=== PATIENT | male | born 1950 | race Caucasian/White ===

== ENCOUNTER 2017-08-11 21:00 | Inpatient (IN) | payer OTHER, MEDICARE ==
[~2017-08-11] VITALS: Ht 167.6 cm; Wt 83.5 kg
[~2017-08-11 21:00] MED LIST: NALOXONE HCL 0.4 MG/ML AMP IV PUSH PRN; SODIUM CHLORIDE 0.9% FLUSH 10 ML FLUSH IV FLUSH PRN; SODIUM CHLORIDE 0.9% FLUSH 10 ML FLUSH IV FLUSH SCH; Vancomycin Consult Pharmacy 1 EA OTHER SCH
[2017-08-11 21:48] VITALS: BP 100/60; PULSE 98; RESP 24; TEMP 98.8; O2SAT 96
[2017-08-11] MEDS ORDERED: AZTREONAM INJ 2,000 MG in SODIUM CHLORIDE 0.9% INJ 100 ML IV SCH (22:00)
[2017-08-11] MEDS ORDERED: NALOXONE HCL 0.4 MG/ML AMP IV PUSH PRN (22:15)
[2017-08-11] MEDS ORDERED: BISACODYL 10 MG SUPP RECTAL PRN (22:15)
[2017-08-11] MEDS ORDERED: MAGNESIUM HYDROXIDE SUSP 30 ML CUP PO PRN (22:15)
[2017-08-11] MEDS ORDERED: SENNOSIDES 8.6 MG TAB PO PRN (22:15)
[2017-08-11] MEDS ORDERED: SODIUM CHLORIDE 0.9% FLUSH 10 ML FLUSH IV FLUSH PRN (22:15)
[2017-08-11] MEDS ORDERED: LACTULOSE SYRUP 20 GM/30 ML CUP PO PRN (22:15)
[2017-08-11] MEDS ORDERED: DIATRIZOATE MEGLUM/DIATRIZOATE SOD 9 ML CUP PO ONE (22:23)
[2017-08-11] MEDS ORDERED: ENALAPRILAT 2.5 MG/2 ML VIAL IV PUSH PRN (22:30)
--- NOTE | 2017-08-11 22:34 | HHI.HP ---
[facility]Staff Admission Diagnosis Diagnoses: Travel History International Travel<30 Days: Yes Contact w/Intl Traveler <30 Da: Yes Traveled to Known Affected Are: No History of Present Illness 66-year-old male presented to the [place] emergency department with a three-day history of nausea/vomiting/diarrhea and anorexia. Patient also endorses 3 days of fever/chills and fatigue. He states he is having shortness of breath worse when he walks or lies flat. He has no known cardiac history. Patient also endorses right lower back pain and is concerned about his kidneys. He is visiting from [place], staying with his brother. He denies any sick contacts. Endorses bloody stools 6 months. On arrival to the emergency department, patient was found to have leukocytosis of 21.9. UA was significant for a UTI, culture pending. Patient was also in acute renal failure with a creatinine of 2.60. Per the patient, he has no known kidney disease. Patient complains of diffuse abdominal pain with significant tenderness to palpation in the right lower quadrant. Review of Systems Positive fever/chills Denies blurry vision, otorrhea, rhinorrhea Denies sore throat and cough No chest pain/palpitations, positive shortness of breath Diffuse abdominal pain Nausea/vomiting/diarrhea Positive fatigue No rashes Past Family Social History Past Medical History Hypertension Hyperlipidemia BPH Past Surgical History None Reported Medications Patient takes Flomax, and antihypertensives Allergies: Coded Allergies: Penicillins (Verified Allergy, Unknown, Rash, 08/11/17) Family History Father with history of diabetes mellitus. Mom with CAD. Social History Denies alcohol, tobacco or illicit drugs Physical Exam Vital Signs Vital Signs Date Time Temp Pulse Resp B/P (MAP) Pulse Ox O2 Delivery O2 Flow Rate FiO2 08/11/17 21:48 98.8 98 24 100/60 (73) 96 Physical Exam GENERAL: Male, lying in bed SKIN: No rashes, ecchymoses or lesions. Cool and dry. HEAD: Atraumatic. Normocephalic. No temporal or scalp tenderness. EYES: Pupils equal round and reactive. Extraocular motions intact. No scleral icterus. No injection or drainage. ENT: Nose without bleeding, purulent drainage or septal hematoma. Throat without erythema, tonsillar hypertrophy or exudate. Uvula midline. Airway patent. Mucous membranes dry. NECK: Trachea midline. No JVD or lymphadenopathy. Supple, nontender, no meningeal signs. CARDIOVASCULAR: Regular rate and rhythm without murmurs, gallops, or rubs. RESPIRATORY: Clear to auscultation. Breath sounds equal bilaterally. No wheezes , rales, or rhonchi. GASTROINTESTINAL: Abdomen soft, nondistended. Tender to palpation worse in the right lower quadrant. No peritoneal signs. No hepato-splenomegaly, or palpable masses. No guarding. : Positive CVA tenderness on the right side MUSCULOSKELETAL: Extremities without clubbing, cyanosis, or edema. No joint tenderness, effusion, or edema noted. No calf tenderness. Negative Homans sign bilaterally. NEUROLOGICAL: Awake and alert. Cranial nerves II through XII intact. Motor and sensory grossly within normal limits. Five out of 5 muscle strength in all muscle groups. Normal speech. Caprini VTE Risk Assessment Caprini VTE Risk Assessment: Mod/High Risk (score >= 2) Caprini Risk Assessment Model Point Value = 1 Point Value = 2 Point Value = 3 Point Value = 5 Age 41-60 Minor surgery BMI > 25 kg/m2 Swollen legs Varicose veins or History of unexplained or recurrent spontaneous Oral contraceptives or hormone replacement Sepsis (< 1 month) Serious lung disease, including pneumonia (< 1 month) Abnormal pulmonary function Acute myocardial infarction Congestive heart failure (< 1 month) History of inflammatory bowel disease Medical patient at bed rest Age 61-74 Arthroscopic surgery Major open surgery (> 45 min) Laparoscopic surgery (> 45 min) Malignancy Confined to bed (> 72 hours) Immobilizing plaster cast Central venous access Age >= 75 History of VTE Family history of VTE Factor V Leiden Prothrombin [id number] Lupus anticoagulant Anticardiolipin antibodies Elevated serum homocysteine Heparin-induced thrombocytopenia Other congenital or acquired thrombophilia Stroke (< 1 month) Elective arthroplasty Hip, pelvis, or leg fracture Acute spinal cord injury (< 1 month) Prophylaxis Regimen Total Risk Factor Score Risk Level Prophylaxis Regimen 0-1 Low Early ambulation 2 Moderate Order ONE of the following: *Sequential Compression Device (SCD) *Heparin 5000 units SQ BID 3-4 Higher Order ONE of the following medications: *Heparin 5000 units SQ TID *Enoxaparin/Lovenox 40 mg SQ daily (WT < 150 kg, CrCl > 30 mL/min) *Enoxaparin/Lovenox 30 mg SQ daily (WT < 150 kg, CrCl > 10-29 mL/min) *Enoxaparin/Lovenox 30 mg SQ BID (WT < 150 kg, CrCl > 30 mL/min) AND/OR *Sequential Compression Device (SCD) 5 or more Highest Order ONE of the following medications: *Heparin 5000 units SQ TID (Preferred with Epidurals) *Enoxaparin/Lovenox 40 mg SQ daily (WT < 150 kg, CrCl > 30 mL/min) *Enoxaparin/Lovenox 30 mg SQ daily (WT < 150 kg, CrCl > 10-29 mL/min) *Enoxaparin/Lovenox 30 mg SQ BID (WT < 150 kg, CrCl > 30 mL/min) AND *Sequential Compression Device (SCD) Assessment and Plan Assessment and Plan 66-year-old male resident with a three-day history of nausea/vomiting/abdominal pain, fever and shortness of breath. Meet sepsis criteria. 1. Severe sepsis Acute kidney injury with creatinine of 2.60 Leukocytosis of 21.9 UA positive for UTI Positive CVA tenderness Physical exam concerning for diverticulitis versus other abdominal pathology CT abdomen/pelvis pending Cipro/Flagyl C. difficile pending Blood cultures pending Urine cultures pending Status post fluid resuscitation in the emergency department, continue IV fluids at 100 cc/hour 2. Acute kidney injury Fluid resuscitation as above Monitor renal function Secondary to sepsis versus decreased by mouth intake 3. Nausea/vomiting/diarrhea CT pending as above Antibiotics as above Zofran C. difficile pending 4. Hypertension Patient on antihypertensives unknown at this time Currently hypotensive at 100/60 Vasotec. FEN Clear liquid diet Monitor electrolytes Fluids as above Heparin Physician Certification 2 Midnight Certification Type: Admission for Inpatient Services Order for Inpatient Services The services are ordered in accordance with Medicare regulations or non- Medicare payer requirements, as applicable. In the case of services not specified as inpatient-only, they are appropriately provided as inpatient services in accordance with the 2-midnight benchmark. Estimated LOS (days): 2 2 days is the estimated time the patient will need to remain in the hospital, assuming treatment plan goals are met and no additional complications. Post-Hospital Plan: Not yet determined Carmenza Stoddard MD Aug 11, 2017 22:34
[2017-08-11] MEDS: ONDANSETRON HCL 4 MG/2 ML VIAL IVP PRN (23:07)
[2017-08-11] MEDS: ACETAMINOPHEN 325 MG TAB PO PRN (23:08)
[2017-08-11] MEDS: metroNIDAZOLE 500 MG INJ 100 ML IV SCH (23:10)
[2017-08-11] MEDS: SODIUM CHLOR 0.9% 1000 ML INJ 1,000 ML IV SCH (23:14)
[2017-08-11] MEDS: CIPROFLOXACIN 400 MG PREMIX 200 ML IV SCH (23:16)
[2017-08-11] MEDS: HEPARIN SODIUM - SQ 10,000 UNITS/ML VIAL SQ SCH (23:18)
[2017-08-12] VITALS (9 sets, daily range): BP systolic 99–112; BP diastolic 59–65; PULSE 82–102; RESP 16–22; TEMP 97.3–99.1; O2SAT 95–100
--- NOTE | 2017-08-12 01:53 | RADRPT ---
EXAM DATE/TIME: 08/12/2017 01:19 [facility] COMPARISON: ABDOMEN FLAT & UPRIGHT, August 11, 2017, 16:12. INDICATIONS : Abdominal pain with nausea, vomiting and fever. ORAL CONTRAST: Prescribed oral contrast ingested. RADIATION DOSE: 8.65 CTDIvol (mGy) MEDICAL HISTORY : Hypertension. Gastroesophageal reflux disease. SURGICAL HISTORY : None. ENCOUNTER: Initial ACUITY: 2 days PAIN SCALE: 7/10 LOCATION: All quadrants. TECHNIQUE: Volumetric scanning of the abdomen and pelvis was performed. Using automated exposure control and ad justment of the mA and/or kV according to patient size, radiation dose was kept as low as reasonably achievable to obtain optimal diagnostic quality images. DICOM format image data is available electro nically for review and comparison. FINDINGS: LOWER LUNGS: Atelectasis and small pleural effusions are seen of both visualized lung bases. LIVER: Homogeneous density without lesion. There is no dilation of the biliary tree. No calcified gallston es. SPLEEN: Normal size without lesion. PANCREAS: Within normal limits. KIDNEYS: Left kidney appears edematous/swollen relative to the right and there is perinephric edema. No hydron ephrosis or hydroureter. No perceptible stone. ADRENAL GLANDS: Within normal limits. VASCULAR: There is no aortic aneurysm. BOWEL/MESENTERY: There is moderate to severe diverticulosis of the descending and sigmoid colon. Some of the left michaelle nephric edema is seen at the level of the mid to lower descending colon and mild diverticulitis is no t excludable. Normal appendix. ABDOMINAL WALL: Within normal limits. RETROPERITONEUM: Scattered shotty retroperitoneal lymph nodes. Nothing pathologic by size criteria. BLADDER: No wall thickening or mass. REPRODUCTIVE: Within normal limits. INGUINAL: There is no lymphadenopathy or hernia. MUSCULOSKELETAL: No acute bony abnormality demonstrated. CONCLUSION: 1. Inflammatory changes of the left kidney of uncertain etiology. The differential would include pyel onephritis and a recently passed stone. 2. Diverticulosis of the left side of the colon and potential mild diverticulitis of the mid to dista l descending. 3. Atelectasis and small pleural effusions of the visualized lung bases. Stoney Vences MD on August 12, 2017 at 1:43 Board Certified Radiologist. This report was verified electronically.
[2017-08-12] MEDS: metroNIDAZOLE 500 MG INJ 100 ML IV SCH ×4 (05:17→21:29)
[2017-08-12] MEDS: HEPARIN SODIUM - SQ 10,000 UNITS/ML VIAL SQ SCH ×3 (05:17→21:30)
[2017-08-12 05:50] LABS: C. DIFF EPI 027 PRESUMPTIVE NEGATIVE (NEGATIVE)
[2017-08-12 06:29] LABS: AUTOMATED NEUTROPHIL # 13.6 TH/MM3 (1.8-7.7); BASOPHIL # 0.1 TH/MM3 (0-0.2); BASOPHIL % 0.4 % (0.0-2.0); EOSINOPHIL % 0.1 % (0.0-4.0); HEMATOCRIT 35.9 % (39.0-51.0); HEMO FLAGS DIFF FINAL; LYMPH % 4.3 % (9.0-44.0); LYMPHOCYTE # 0.7 TH/MM3 (1.0-4.8); MEAN CELL VOLUME 86.3 FL (80.0-100.0); MEAN CORPUSCULAR HEMOGLOBIN 28.8 PG (27.0-34.0); MEAN CORPUSCULAR HGB CONC 33.4 % (32.0-36.0); MONO % 10.2 % (0.0-8.0); PLATELET COUNT 126 TH/MM3 (150-450); RED BLOOD COUNT 4.16 MIL/MM3 (4.50-5.90); RED CELL DISTRIBUTION WIDTH 13.5 % (11.6-17.2)
[2017-08-12 07:05] LABS: ANION GAP 8 MEQ/L (5-15); AST (GOT) 18 U/L (15-37); BICARBONATE 20.6 MEQ/L (21.0-32.0); BLOOD UREA NITROGEN 24 MG/DL (7-18); CHLORIDE 104 MEQ/L (98-107); GLOMERULAR FILTRATION RATE 42 ML/MIN (>89); POTASSIUM 3.9 MEQ/L (3.5-5.1); SODIUM (NA) 133 MEQ/L (136-145)
[2017-08-12 07:06] LABS: ALT (GPT) 18 U/L (12-78)
[2017-08-12 07:08] LABS: ALKALINE PHOSPHATASE 59 U/L (45-117); TOTAL BILIRUBIN ADULT 0.6 MG/DL (0.2-1.0)
[2017-08-12] MEDS: SODIUM CHLOR 0.9% 1000 ML INJ 1,000 ML IV SCH ×2 (09:00→16:09)
[2017-08-12] MEDS: SODIUM CHLORIDE 0.9% FLUSH 10 ML FLUSH IV FLUSH SCH ×2 (09:00→21:32)
[2017-08-12] MEDS: DOCUSATE SODIUM 50 MG/SENNA 8.6 MG TAB PO SCH ×2 (09:44→21:00)
--- NOTE | 2017-08-12 13:40 | HHI.PR ---
Subjective Remarks Report some abdominal discomfort. No nausea or vomiting. Eating ok. Objective Vitals Vital Signs Date Time Temp Pulse Resp B/P (MAP) Pulse Ox O2 Delivery O2 Flow Rate FiO2 08/12/17 12:00 97.3 100 16 103/64 (77) 98 08/12/17 09:30 98 08/12/17 08:00 97.3 92 18 104/65 (78) 99 08/12/17 05:23 97.6 82 20 100/63 (75) 100 08/12/17 05:01 98 08/12/17 01:07 97.7 93 22 99/64 (76) 95 08/11/17 21:48 98.8 98 24 100/60 (73) 96 I/O 08/11/17 08/11/17 08/11/17 08/12/17 08/12/17 08/12/17 07:00 15:00 23:00 07:00 15:00 23:00 Intake Total 300 ml Output Total 200 ml 1 ml Balance 100 ml -1 ml Intake IV Total 300 ml Output Urine Total 200 ml 1 ml # Bowel Movements 1 Result Diagram: 08/12/1752908/12/17529 Objective Remarks GENERAL: No acute distress CARDIOVASCULAR: Regular rate and rhythm. RESPIRATORY: No accessory muscle use. Clear to auscultation. Breath sounds equal bilaterally. GASTROINTESTINAL: Abdomen soft, diffusely tender to palpation MUSCULOSKELETAL: Extremities without clubbing, cyanosis, or edema. No obvious deformities. NEUROLOGICAL: Awake and alert. Normal speech. PSYCHIATRIC: Appropriate mood and affect; insight and judgment normal. A/P Assessment and Plan 66-year-old male resident with a three-day history of nausea/vomiting/abdominal pain, fever and shortness of breath. Meet sepsis criteria. Severe sepsis secondary to UTI and/or diverticulitis Acute kidney injury with creatinine of 2.60 Leukocytosis of 21.9 UA positive for UTI Positive CVA tenderness CT abdomen/pelvis shows kidney abnormality which may be consistent with pyelo or recent stone. Mild diverticulitis Cipro/Flagyl C. difficile negative Blood cultures pending Urine cultures pending Status post fluid resuscitation in the emergency department, continue IV fluids at 100 cc/hour Acute kidney injury Fluid resuscitation as above Monitor renal function Secondary to sepsis versus decreased by mouth intake Crispin Mclean MD Aug 12, 2017 13:40
[2017-08-12] MEDS: ACETAMINOPHEN 325 MG TAB PO PRN (16:08)
[2017-08-12] MEDS ORDERED: MORPHINE SULFATE 2 MG/ML INJ IV PUSH ONE (21:15)
[2017-08-12] MEDS: ONDANSETRON HCL 4 MG/2 ML VIAL IVP PRN (21:28)
[2017-08-12] MEDS ORDERED: ACETAMINOPHEN/HYDROcodone 325 MG/5 MG TAB PO PRN (22:00)
[2017-08-13] VITALS: BP 109/62; PULSE 87; RESP 18; TEMP 98.3; O2SAT 96
[2017-08-13] MEDS: CIPROFLOXACIN 400 MG PREMIX 200 ML IV SCH (00:29)
[2017-08-13 04:00] VITALS: BP 120/70; PULSE 84; RESP 20; TEMP 98.5; O2SAT 95
[2017-08-13] MEDS: metroNIDAZOLE 500 MG INJ 100 ML IV SCH ×2 (04:22→10:21)
[2017-08-13] MEDS: SODIUM CHLOR 0.9% 1000 ML INJ 1,000 ML IV SCH (05:44)
[2017-08-13] MEDS: HEPARIN SODIUM - SQ 10,000 UNITS/ML VIAL SQ SCH ×2 (05:45→13:51)
[2017-08-13 06:38] VITALS: PULSE 98
[2017-08-13 08:00] VITALS: BP 108/68; PULSE 81; RESP 17; TEMP 98.6; O2SAT 94
[2017-08-13 08:59] LABS: HEMATOCRIT 34.6 % (39.0-51.0); MEAN CELL VOLUME 86.4 FL (80.0-100.0); MEAN CORPUSCULAR HEMOGLOBIN 29.3 PG (27.0-34.0); MEAN CORPUSCULAR HGB CONC 33.9 % (32.0-36.0); PLATELET COUNT 128 TH/MM3 (150-450); RED CELL DISTRIBUTION WIDTH 13.7 % (11.6-17.2); REVIEW FLAG FINAL; WHITE BLOOD COUNT 10.2 TH/MM3 (4.0-11.0)
[2017-08-13] MEDS: SODIUM CHLORIDE 0.9% FLUSH 10 ML FLUSH IV FLUSH SCH (09:00)
[2017-08-13 10:19] VITALS: O2SAT 95
[2017-08-13] MEDS ORDERED: CIPR-9 PO (11:48)
[2017-08-13] MEDS ORDERED: METR1TAB76 PO (11:48)
--- NOTE | 2017-08-13 11:49 | HHI.DCPOC ---
Discharge Care Plan Diagnosis: (1) Sepsis (2) Diverticulitis (3) Renal insufficiency Goals to Promote Your Health * To prevent worsening of your condition and complications * To maintain your health at the optimal level Directions to Meet Your Goals Take your medications as prescribed Follow your dietary instruction Follow activity as directed Keep your appointments as scheduled Take your immunizations and boosters as scheduled If your symptoms worsen call your PCP, if no PCP go to Urgent Care Center or Emergency Room Smoking is Dangerous to Your Health. Avoid second hand smoke Call the 24-hour hour crisis hotline for domestic abuse at Crispin Mclean MD Aug 13, 2017 11:49
--- NOTE | 2017-08-13 11:49 | HHI.DS ---
Discharge Summary Admission Date Aug 11, 2017 at 21:10 Discharge Date: Aug 13, 2017 Admitting Diagnosis (1) Sepsis ICD Code: A41.9 - Sepsis, unspecified organism Status: Acute (2) Diverticulitis ICD Code: K57.92 - Diverticulitis of intestine, part unspecified, without perforation or abscess without bleeding (3) Renal insufficiency ICD Code: N28.9 - Disorder of kidney and ureter, unspecified Procedures None Brief History - From Admission History of present illness from the admitting physician 66-year-old male presented to the [place] emergency department with a three-day history of nausea/vomiting/diarrhea and anorexia. Patient also endorses 3 days of fever/chills and fatigue. He states he is having shortness of breath worse when he walks or lies flat. He has no known cardiac history. Patient also endorses right lower back pain and is concerned about his kidneys. He is visiting from [place], staying with his brother. He denies any sick contacts. Endorses bloody stools 6 months. On arrival to the emergency department, patient was found to have leukocytosis of 21.9. UA was significant for a UTI, culture pending. Patient was also in acute renal failure with a creatinine of 2.60. Per the patient, he has no known kidney disease. Patient complains of diffuse abdominal pain with significant tenderness to palpation in the right lower quadrant. CBC/BMP: 08/13/17 0753 08/12/17 0530 Significant Findings Laboratory Tests Test 08/12/17 04:45 08/12/17 05:30 08/13/17 07:53 White Blood Count 16.0 TH/MM3 (4.0-11.0) Red Blood Count 4.16 MIL/MM3 (4.50-5.90) 4.00 MIL/MM3 (4.50-5.90) Hemoglobin 12.0 GM/DL (13.0-17.0) 11.7 GM/DL (13.0-17.0) Hematocrit 35.9 % (39.0-51.0) 34.6 % (39.0-51.0) Platelet Count 126 TH/MM3 (150-450) 128 TH/MM3 (150-450) Neutrophils (%) (Auto) 85.0 % (16.0-70.0) Lymphocytes (%) (Auto) 4.3 % (9.0-44.0) Monocytes (%) (Auto) 10.2 % (0.0-8.0) Neutrophils # (Auto) 13.6 TH/MM3 (1.8-7.7) Lymphocytes # (Auto) 0.7 TH/MM3 (1.0-4.8) Monocytes # (Auto) 1.6 TH/MM3 (0-0.9) Blood Urea Nitrogen 24 MG/DL (7-18) Creatinine 1.63 MG/DL (0.60-1.30) Albumin 2.6 GM/DL (3.4-5.0) Calcium Level 7.7 MG/DL (8.5-10.1) Sodium Level 133 MEQ/L (136-145) Carbon Dioxide Level 20.6 MEQ/L (21.0-32.0) Estimat Glomerular Filtration Rate 42 ML/MIN (>89) Imaging Last Impressions Abdomen/Pelvis CT 08/11/17 0000 Signed Impressions: Service Date/Time: Saturday, August 12, 2017 01:19 - CONCLUSION: 1. Inflammatory changes of the left kidney of uncertain etiology. The differential would include pyelonephritis and a recently passed stone. 2. Diverticulosis of the left side of the colon and potential mild diverticulitis of the mid to distal descending. 3. Atelectasis and small pleural effusions of the visualized lung bases. Stoney Vences MD PE at Discharge GENERAL: No acute distress CARDIOVASCULAR: Regular rate and rhythm. RESPIRATORY: No accessory muscle use. Clear to auscultation. Breath sounds equal bilaterally. GASTROINTESTINAL: Abdomen soft, mildly tender to deep palpation. Normal active bowel sounds. MUSCULOSKELETAL: Extremities without clubbing, cyanosis, or edema. No obvious deformities. NEUROLOGICAL: Awake and alert. Normal speech. PSYCHIATRIC: Appropriate mood and affect; insight and judgment normal. Pt update on day of discharge Patient reports he is feeling much better. He is ambulating the halls. Ready to go home. Hospital Course 66-year-old male resident with a three-day history of nausea/vomiting/abdominal pain, fever and shortness of breath. Meet sepsis criteria. Patient was admitted for sepsis secondary to GI and/or diverticulitis. His urine culture grew mixed kelsi, probable contaminant. Abdominal CT showed diverticulosis and mild diverticulitis. Patient was treated with IV ciprofloxacin and Flagyl. He was given IV fluid for hydration and pain control. His symptoms quickly improved. Patient is discharged on Cipro and Flagyl to complete the course of treatment. He also presented with acute kidney injury likely secondary to dehydration. Renal functions improved with hydration. Patient is advised to follow-up outpatient with his PCP. Pt Condition on Discharge: Good Discharge Disposition: Discharge Home Discharge Time: <= 30 minutes Discharge Instructions DIET: Follow Instructions for: Heart Healthy Diet Activities you can perform: Regular-No Restrictions New Medications: Ciprofloxacin (Cipro) 500 Mg Tab 500 MG PO BID for Infection, #10 TAB 0 Refills Metronidazole (Metronidazole) 500 Mg Tab 500 MG PO TID for Infection, #15 TAB 0 Refills Crispin Mclean MD Aug 13, 2017 11:49
[2017-08-13 12:00] VITALS: BP 113/67; PULSE 87; RESP 16; TEMP 99.2; O2SAT 98
== END 2017-08-13 14:24 | disposition home or self-care (01) | DRG 872 ==
LOC: NEDDLT 21:00 → N07A 21:10
PROVIDERS: ADMIT Family Medicine; ATTEND Family Medicine
DX: A41.9 Sepsis, unspecified organism (principal); N17.9 Acute kidney failure, unspecified; K57.32 Diverticulitis of large intestine without perforation or abscess without bleeding; R65.20 Severe sepsis without septic shock; I10 Essential (primary) hypertension; E86.0 Dehydration; E78.5 Hyperlipidemia, unspecified; N40.0 Benign prostatic hyperplasia without lower urinary tract symptoms
CPT/HCPCS: 70450; 71010; 74020; 74176; 80053; 81001; 82550; 82552; 82948; 83605; 83690; 83735; 84484; 85025; 85027; 87040; 87086; 87328; 87329; 87493; 87506; 87804; 93005; 96361; 96365; 96366; 96368; 96375; J0744; J1644; J2270; J2405; J3370; J7030; J7050; Q9963